=== PATIENT | female | born 1975 | race Caucasian/White ===

== ENCOUNTER → 2018-10-09 | Outpatient (CLI) | payer OTHER ==
[2018-10-09 10:41] LABS: BASOPHILS # (AUTO) 0.03 x10^3/uL (0-0.1); BASOPHILS % (AUTO) 1 % (0-1); EOSINOPHILS # (AUTO) 0.09 x10^3/uL (0-0.4); EOSINOPHILS % (AUTO) 1 % (1-7); LYMPHOCYTES # (AUTO) 1.51 x10^3/uL (1-3.4); LYMPHOCYTES % (AUTO) 21 % (22-44); MD NO; MEAN CORPUSCULAR HEMOGLOBIN 26.8 pg (27.0-34.8); MEAN CORPUSCULAR VOLUME 81.3 fL (80-100); MEAN PLATELET VOLUME 8.7 fL (7.4-10.4); MONOCYTES # (AUTO) 0.47 x10^3/uL (0.2-0.8); MONOCYTES % (AUTO) 7 % (2-9); NEUTROPHILS % (AUTO) 71 % (42-75); PLATELET COUNT 318 x10^3/uL (130-400); RED BLOOD COUNT 5.34 x10^6/uL (3.82-5.3)
[2018-10-09 10:48] LABS: ALANINE AMINOTRANSFERASE 96 U/L (12-78); ALBUMIN 3.5 g/dL (3.4-5.0); ANION GAP 7 mmol/L (5-15); CHLORIDE 104 mmol/L (98-107)
[2018-10-09 10:57] LABS: ALKALINE PHOSPHATASE 90 U/L (45-117); BILIRUBIN,TOTAL 0.4 mg/dL (0.2-1.0); CHOL/HDL RATIO 2.7; CHOLESTEROL, TOTAL 144 mg/dL (140-239); CREATININE 0.76 mg/dL (0.55-1.02); HDL CHOL % 38 % (28-40); HDL CHOLESTEROL (DIRECT) 54 mg/dL (40-60); LDL CHOLESTEROL,CALCULATED 80 mg/dL (54-169); LDL/HDL RATIO 1.5 (0.5-3.0); THYROID STIMULATING HORMONE 0.884 mIU/L (0.358-3.740); TOTAL PROTEIN 7.9 g/dL (6.4-8.2); TRIGLYCERIDES 52 mg/dL (50-200); VLDL CHOLESTEROL 10 mg/dL (0-25)
[2018-10-09 11:13] LABS: HEMOGLOBIN A1C 9.3 % (4.2-6.3)
== END | disposition home or self-care (01) ==
LOC: LAB 09:45
PROVIDERS: ATTEND Nurse Practitioner Family
DX: E11.65 Type 2 diabetes mellitus with hyperglycemia (principal)
CPT/HCPCS: 36415; 80053; 80061; 82043; 83036; 84443; 85025